=== PATIENT | male | born 1965 | race Two or more races ===

== ENCOUNTER 2020-01-04 15:25 | Inpatient (IN) | payer OTHER ==
[~2020-01-04] VITALS: Ht 175.3 cm; Wt 83.8 kg
[2020-01-04] MEDS ORDERED: SODIUM CHLORIDE 0.9% 1,000 ML IV ONE (15:51)
[2020-01-04] MEDS ORDERED: CLINDAMYCIN 900MG IV 50 ML IV ONE (16:00)
[2020-01-04] MEDS ORDERED: KETOROLAC TROMETH 30 MG/ML 1ML VIAL IV ONE (16:00)
[2020-01-04] MEDS ORDERED: MORPHINE SULF INJ 2 MG/ML SYRINGE 1ML IV PRN (17:00)
[2020-01-04] MEDS ORDERED: NITROGLYCERIN 0.4 MG SL TAB SL PRN (17:00)
[2020-01-04 17:12] LABS: Basophils # (auto) 0.1 10 ^3/uL (0-0.2); Eosinophils # (auto) 0.2 10 ^3/uL (0-0.8); Hematocrit 39.8 % (41.0-53.0); Hemoglobin 13.6 g/dL (13.5-17.5); Lymphocytes # (auto) 1.4 10 ^3/uL (0.4-5.4); Lymphocytes % (auto) 26.2 % (10.0-50.0); Mean Corpuscular Hemoglobin 30.6 pg (28.0-32.0); Mean Corpuscular Hgb Conc. 34.1 g/dL (32.0-36.0); Mean Corpuscular Volume 89.7 fL (80.0-100.0); Monocytes # (auto) 0.5 10 ^3/uL (0-1.3); Neutrophils # (auto) 3.3 10 ^3/uL (1.6-8.6); Neutrophils % (auto) 59.8 % (37.0-80.0); Nucleated Red Blood Cells % 0.1 %; Platelet Count (auto) 216 10^3/uL (140-450); Red Blood Cells 4.44 10^6/uL (4.5-5.90); Red Cell Distribution Width 12.6 % (11.8-14.3); White Blood Cell 5.4 10^3/uL (4.4-10.8)
[2020-01-04 17:18] LABS: INR 1.02 (0.9-1.15); Partial Thromboplastin Time 32.2 sec (23.64-32.05)
[2020-01-04 17:19] LABS: Potassium 4.3 mmol/L (3.5-5.1)
[2020-01-04 17:25] LABS: Albumin 3.5 g/dL (3.4-5.0); BUN/Creatinine Ratio 19.8; Bilirubin, Total 0.3 mg/dL (0.2-1.0); Calcium 8.7 mg/dL (8.5-10.1); Magnesium 2.6 mg/dL (1.6-2.6); Total Protein 7.8 g/dL (6.4-8.2)
[2020-01-04 17:35] LABS: CRP High Sensitivity 4.14 mg/dL (< 0.3)
[2020-01-04] MEDS: ENOXAPARIN SOD 80 MG/0.8ML SYRINGE SC SCH (21:50)
[2020-01-04] MEDS: PIPERACILLIN-TAZOB 3.375GM 100 ML IV SCH (21:50)
--- NOTE | 2020-01-04 21:51 | NUR ---
MS admit from ER KAREN NG admitted to tele/MS. Patient oriented to bethany ATKINS RN, unit, room, bed, and unit policies regarding patient care and visiting hours. Patient weighed by bedscale and encouraged to call if they need something. All questions and concerns addressed, patient verbalized understanding. Note: Patient accompanied by guards. Right knee wound with dressing. Right leg reddened, slightly swollen with wound on right knee. Obtained wound culture and dressing changed to right knee.
[2020-01-04 22:00] VITALS: BP 150/91
[2020-01-04 22:27] VITALS: BP 150/91
[2020-01-05] MEDS ORDERED: ATOR10TA52 PO (00:04)
[2020-01-05] MEDS ORDERED: IBUP600T27 PO (00:04)
[2020-01-05] MEDS ORDERED: AMITRIP PO (00:04)
[2020-01-05] MEDS ORDERED: LISI-646 PO (00:04)
[2020-01-05] MEDS ORDERED: SULF800T7 PO (00:04)
[2020-01-05 05:30] VITALS: BP 141/80
[2020-01-05] MEDS: PIPERACILLIN-TAZOB 3.375GM 100 ML IV SCH ×3 (05:37→22:21)
[2020-01-05 08:00] VITALS: BP 117/77
--- NOTE | 2020-01-05 08:00 | NUR ---
OPENING SHIFT NOTE ASSUMED CARE OF PATIENT AWAKE AND ALERT. NO S/S OF DISTRESS NOTED OR COMPLAINTS OF PAIN. PATIENT UPDATED ON POC FOR THE DAY AND ALL QUESTIONS ANSWERED. BED IS IN LOWEST, LOCKED POSITION WITH SIDE RAILS UP X2 AND CALL LIGHT WITHIN REACH. WILL CONTINUE TO MONITOR Q1H AND PRN.
[2020-01-05] MEDS: ENOXAPARIN SOD 80 MG/0.8ML SYRINGE SC SCH ×2 (09:49→22:21)
[2020-01-05 12:00] VITALS: BP 114/71
[2020-01-05] MEDS ORDERED: VANCOMYCIN PER PHARMACY 0 MG IV SCH (14:00)
[2020-01-05 17:00] VITALS: BP 132/75
[2020-01-05] MEDS ORDERED: VANCOMYCIN 1GM/250ML 250 ML IV SCH ×2 (17:00→23:30)
[2020-01-05 22:00] VITALS: BP 129/78
[2020-01-06 05:00] VITALS: BP 126/88
[2020-01-06] MEDS: PIPERACILLIN-TAZOB 3.375GM 100 ML IV SCH ×3 (06:05→23:04)
--- NOTE | 2020-01-06 07:50 | NUR ---
OPENING SHIFT NOTE: PATIENT AWAKE RESTING IN BED, EATING BREAKFAST. A/OX4 RESPIRATIONS EVEN AND UNLABORED. PATIENT DENIES ANY PAIN AT THIS TIME. UPDATED ON PLAN OF CARE. CALL LIGHT WITHIN REACH, FALL PRECAUTIONS IN PLACE, GUARDS AT BEDSIDE, WILL CONTINUE TO MONITOR.
--- NOTE | 2020-01-06 08:22 | NUR ---
WOUND CARE PHOTOS OBTAINED, DRESSING TO RIGHT KNEE CHANGED, CDI.
[2020-01-06 08:30] VITALS: BP 122/78
--- NOTE | 2020-01-06 09:52 | NUR ---
MARELY TEST WALKED TO LAB.
--- NOTE | 2020-01-06 10:00 | NUR ---
WOUND CARE NOTE: IN TO SEE PATIENT AT THIS TIME PER WOUND CARE CONSULT REQUEST. PATIENT RECENTLY ADMITTED TO [facility] WITH DIAGNOSIS OF RIGHT LEG CELLULITIS. CURRENT EMETERIO SCORE IS 21. PATIENT NOT SURE HOW WOUND WAS ACQUIRED, BUT FEELS THAT IT MAY BE AN INSECT BITE THAT WORSENED OVER THE LAST WEEK. WOUND PHOTO WAS TAKEN UPON ADMIT BY BEDSIDE NURSE, AND AGAIN AT THIS TIME FOR REFERENCE. PRELIMINARY WOUND CULTURE IS POSITIVE FOR STAPH. WOUND MEASURES 4 X 4.5 CM. WOUND BED IS RED, WITH BLACK CRUSTY ESCHAR TO OUTER PERIMETER OF WOUND BED. PERIWOUND IS DARK RED, EDEMA IS SEEN, LIGHT SEROUS DRAINAGE NOTED. APPLIED SILVASORB, OPTIFOAM GENTLE DRESSING. PATIENT WOULD BENEFIT FROM DAILY DRESSING CHANGES WITH SILVASORB AND OPTIFOAM GENTLE DRESSINGS, DIETARY CONSULT, ELEVATION OF RIGHT LEG UP ONTO PILLOWS FOR EDEMA CONTROL, CONTINUED MONITORING BY WOUND CARE TEAM, SKIN/WOUND CARE PLAN. Addendum: 01/06/20 at 1725 by Cee Miller RN Amended: Links added.
[2020-01-06 10:23] LABS: Basophils # (auto) 0.1 10 ^3/uL (0-0.2); Basophils % (auto) 1.2 % (0.0-2.0); Eosinophils # (auto) 0.3 10 ^3/uL (0-0.8); Eosinophils % (auto) 5.8 % (0.0-7.0); Hematocrit 39.4 % (41.0-53.0); Hemoglobin 13.4 g/dL (13.5-17.5); Lymphocytes # (auto) 1.4 10 ^3/uL (0.4-5.4); Lymphocytes % (auto) 29.7 % (10.0-50.0); Mean Corpuscular Hemoglobin 30.9 pg (28.0-32.0); Mean Corpuscular Hgb Conc. 34.2 g/dL (32.0-36.0); Mean Corpuscular Volume 90.3 fL (80.0-100.0); Monocytes # (auto) 0.4 10 ^3/uL (0-1.3); Monocytes % (auto) 8.8 % (0.0-12.0); Neutrophils # (auto) 2.5 10 ^3/uL (1.6-8.6); Neutrophils % (auto) 54.5 % (37.0-80.0); Nucleated Red Blood Cells % 0.1 %; Platelet Count (auto) 201 10^3/uL (140-450); Red Blood Cells 4.36 10^6/uL (4.5-5.90); Red Cell Distribution Width 12.5 % (11.8-14.3); White Blood Cell 4.6 10^3/uL (4.4-10.8)
[2020-01-06] MEDS: ENOXAPARIN SOD 80 MG/0.8ML SYRINGE SC SCH ×2 (10:45→23:04)
[2020-01-06 11:43] VITALS: BP 133/72
[2020-01-06 16:30] VITALS: BP 126/78
--- NOTE | 2020-01-06 19:07 | NUR ---
IV DISCONTINUED IN RIGHT FA. NEW IV PLACED IN RIGHT FOREARM/WRIST AREA, 20G CDI.
--- NOTE | 2020-01-06 19:16 | NUR ---
CARE ENDORSED TO NOC RN.
[2020-01-06 22:00] VITALS: BP 137/93
[2020-01-07 05:00] VITALS: BP 145/76
[2020-01-07] MEDS: VANCOMYCIN 1GM/250ML 250 ML IV SCH ×2 (05:43→17:45)
[2020-01-07] MEDS: PIPERACILLIN-TAZOB 3.375GM 100 ML IV SCH ×3 (06:24→22:51)
[2020-01-07 08:47] VITALS: BP 136/85
--- NOTE | 2020-01-07 09:35 | NUR ---
DRESSING CHANGED TO RIGHT KNEE WOUND ORDERED.
[2020-01-07] MEDS: ENOXAPARIN SOD 80 MG/0.8ML SYRINGE SC SCH ×2 (09:36→22:52)
--- NOTE | 2020-01-07 12:47 | NUR ---
Nutrition Consult/assessment Notes please see attached link for complete assessment Est. Needs BW 88 [id number] kcals (23-25 kcal/kgBW). 88-105g protein (1.0-1.2g/kg BW) . Will continue to monitor pertinent labs and reassess nutrient need prn. Addendum: 01/07/20 at [address] Amended: Links added.
[2020-01-07 12:50] VITALS: BP 134/84
--- NOTE | 2020-01-07 13:30 | NUR ---
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
[2020-01-07 16:21] VITALS: BP 145/89
--- NOTE | 2020-01-07 17:28 | NUR ---
PATIENT SUCCESSFULLY ISOLATED NOW IN ROOM 205.
--- NOTE | 2020-01-07 17:30 | NUR ---
PATIENT UP IN SHOWER.
--- NOTE | 2020-01-07 19:09 | NUR ---
CARE ENDORSED TO NOC RN.
--- NOTE | 2020-01-07 20:25 | NUR ---
PATIENT RESTING ON BED, AWAKE, ALERT AND ORIENTED X 4. DENIES PAIN OR DISCOMFORT AT THIS TIME. PATIENT HAS DRESSING TO RIGHT KNEE, NO DRAINAGE NOTED. PATIENT'S RIGHT LEG IS STILL EDEMATOUS BUT PATIENT REPORTED IT HAD GONE DOWN A LOT. REVIEWED POC. CONTINUE PATIENT CARE.
[2020-01-07 21:52] VITALS: BP 144/91
--- NOTE | 2020-01-08 02:35 | NUR ---
PATIENT RESTING ON BED WITH EYES CLOSED. NO RESPIRATORY DISTRESS NOTED AT THIS TIME. GUARDS AT BEDSIDE. CONTINUE PATIENT CARE.
[2020-01-08] MEDS: HYDROcodone-ACET 10/325MG TAB PO PRN ×2 (04:41→08:48)
[2020-01-08] MEDS: VANCOMYCIN 1GM/250ML 250 ML IV SCH ×2 (05:22→18:17)
[2020-01-08 05:41] VITALS: BP 120/72
[2020-01-08] MEDS: PIPERACILLIN-TAZOB 3.375GM 100 ML IV SCH ×3 (06:40→21:33)
--- NOTE | 2020-01-08 07:30 | NUR ---
Opening Shift Note Assumed care of patient, awake and alert. No S/S of distress/SOB. Pain management options discussed with patient. Instructed on POC and to call for assist PRN, will continue to monitor for changes Q1hr and PRN.
[2020-01-08 08:00] VITALS: BP 137/84
[2020-01-08 09:00] VITALS: BP 137/84
[2020-01-08] MEDS: ENOXAPARIN SOD 80 MG/0.8ML SYRINGE SC SCH ×2 (09:49→21:33)
[2020-01-08 13:00] VITALS: BP 139/81
[2020-01-08 16:49] VITALS: BP 128/74
--- NOTE | 2020-01-08 18:00 | NUR ---
Dressing changed to right knee. cleansed with wound cleanser and then silvasorb applied. optifoam applied and reinforced with netting.
[2020-01-08] MEDS ORDERED: TPN PER PHARMACY IV NR ×10 (20:00)
[2020-01-08 22:00] VITALS: BP 154/85
--- NOTE | 2020-01-09 03:40 | NUR ---
Called Lab to confirm vanco trough lab draw. Lab did confirm lab draw and blood bank laboratory technologist will be at unit shortly-and was advised to ask blood bank laboratory technologist when she gets here to draw vanco trough. Addendum: 01/09/20 at 0505 by Reagan Jiménez RN wrong patient
--- NOTE | 2020-01-09 04:15 | NUR ---
Spoke to Zhui Xin and notified of [facility] lab draw due at 0430. [employer] confirmed and will do it shortly. Addendum: 01/09/20 at 0505 by Reagan Jiménez RN wrong patient
[2020-01-09 05:00] VITALS: BP 154/75
--- NOTE | 2020-01-09 05:02 | NUR ---
Spoke to [employer] and she advised that she is doing lab draw now. Addendum: 01/09/20 at 0505 by Reagan Jiménez RN wrong patient
--- NOTE | 2020-01-09 05:06 | NUR ---
patient is resting in bed with no sign of distress or sob.
[2020-01-09] MEDS: VANCOMYCIN 1GM/250ML 250 ML IV SCH ×2 (05:16→18:10)
[2020-01-09] MEDS: PIPERACILLIN-TAZOB 3.375GM 100 ML IV SCH ×3 (06:25→21:04)
--- NOTE | 2020-01-09 07:30 | NUR ---
Opening Shift Note Assumed care of patient, awake and alert. No S/S of distress/SOB or pain. Instructed on POC and to call for assist PRN, will continue to monitor for changes Q1hr and PRN.
[2020-01-09 08:00] VITALS: BP 141/78
[2020-01-09] MEDS: ENOXAPARIN SOD 80 MG/0.8ML SYRINGE SC SCH ×2 (09:53→21:04)
[2020-01-09 12:00] VITALS: BP 149/82
[2020-01-09] MEDS: HYDROcodone-ACET 10/325MG TAB PO PRN (13:16)
[2020-01-09 17:00] VITALS: BP 131/88
--- NOTE | 2020-01-09 19:15 | NUR ---
Opening Shift Note Assumed care of patient, awake and alert. No S/S of distress/SOB or pain. Bed in lowest locked position, side rails up x2, call light within reach, guards at bedside. Optifoam dressing noted to be clean, dry, and intact with no redness or edema noted. Patient stated he changed the dressing after showering earlier in the day. Instructed on POC and to call for assist PRN, will continue to monitor for changes Q1hr and PRN.
[2020-01-09] MEDS: OXYCODONE W/ ACETAMINOPHEN 5/325MG TABLET PO PRN (21:05)
[2020-01-09 22:00] VITALS: BP 145/84
--- NOTE | 2020-01-10 00:33 | NUR ---
IV removal and insertion 20 gauge IV to right wrist noted to be leaking. IV DC'd with clean sterile technique, catheter fully intact. Pressure dressing applied to site. Patient tolerated well. IV access obtained, via clean sterile technique by inserting a 22 gauge catheter to patient's right hand after one attempt. IV secured properly. No trauma to site. Patient tolerated well. Zosyn continues infusing as ordered. Will continue to monitor.
[2020-01-10] MEDS: OXYCODONE W/ ACETAMINOPHEN 5/325MG TABLET PO PRN ×4 (00:54→21:54)
[2020-01-10 05:00] VITALS: BP 156/85
[2020-01-10] MEDS: VANCOMYCIN 1GM/250ML 250 ML IV SCH ×2 (05:45→17:16)
[2020-01-10] MEDS: PIPERACILLIN-TAZOB 3.375GM 100 ML IV SCH ×3 (06:53→21:52)
--- NOTE | 2020-01-10 06:56 | NUR ---
Closing Note Patient lying in bed, awake and alert. No S/S of distress/SOB or pain. Bed in lowest locked position, side rails up x2, call light within reach, guards at bedside. Will endorse care to dayshift RN.
--- NOTE | 2020-01-10 07:30 | NUR ---
Opening shift note assumed care of patient from NOC RUSSELL Marroquin. Patient is aox4, no s/s of distress noted. Bed is in lowest locked position, call light is within reach, and side rails are up x2. Updated patient on plan of care and patient verbalized understanding. Will continue to monitor q1hr and PRN.
[2020-01-10 08:00] VITALS: BP 132/75
--- NOTE | 2020-01-10 09:28 | NUR ---
Physician rounding Dr. Encarnacion at bedside. Updated him on patient status, no new orders received. Will continue care.
[2020-01-10] MEDS: ENOXAPARIN SOD 80 MG/0.8ML SYRINGE SC SCH ×2 (09:29→21:52)
[2020-01-10] MEDS: ONDANSETRON HCL 4 MG/2 ML VIAL IV PRN ×2 (09:29→17:31)
--- NOTE | 2020-01-10 11:02 | NUR ---
Nutrition Followup Note Wt 87.7kg Pt was in isolation. Pt appetite is good aeb pt with 96% po intake avg x 2 days per RN note. Will continue to monitor po intake, labs, skin Est. Needs BW 88 [id number] kcals (23-25 kcal/kgBW). 88-105g protein (1.0-1.2g/kg BW) . Will continue to monitor pertinent labs and reassess nutrient need prn. Labs: BUN 22H, GLUC 112H, Alb 3.5WNL BM: 1 BM 01/09 per RN note Skin: BS 21 low risk, abrasion on right knee, full details in hearing care professional note PES: Altered nutrition related lab values r.t current chronic medical condition aeb elev BUN hyperglcyemia Comments 1)consider MVI/C bid 2) continue current peraza of care Expected Outcomes/Goals: pt will have better healing wounds pt will have improved labs
[2020-01-10 12:00] VITALS: BP 128/69
[2020-01-10 17:00] VITALS: BP 162/98
--- NOTE | 2020-01-10 19:25 | NUR ---
End of shift note Endorsed care of patient to NOC RN Erika. No s/s of distress noted.
--- NOTE | 2020-01-10 19:25 | NUR ---
Opening Shift Note Assumed care of patient, awake and alert. No S/S of distress/SOB or pain. Bed in lowest locked position, side rails up x2, call light within reach, guards at bedside. Optifoam dressing again noted to be clean, dry, and intact with no redness or edema noted. Dressing changed earlier in the day, per report from dayshift RN. Instructed on POC and to call for assist PRN, will continue to monitor for changes Q1hr and PRN.
[2020-01-10 22:00] VITALS: BP 149/96
[2020-01-11 05:00] VITALS: BP 140/86
[2020-01-11] MEDS: VANCOMYCIN 1GM/250ML 250 ML IV SCH ×2 (05:30→17:23)
[2020-01-11] MEDS: ONDANSETRON HCL 4 MG/2 ML VIAL IV PRN ×2 (05:46→16:23)
[2020-01-11] MEDS: PIPERACILLIN-TAZOB 3.375GM 100 ML IV SCH ×3 (06:52→21:42)
--- NOTE | 2020-01-11 07:15 | NUR ---
Opening shift note assumed care of patient from NOC RUSSELL James. Patient is AOx4, no s/s of distress noted. Bed is in lowest locked position, call light is within reach, guards at bedside and side rails are up x2. Updated patient on plan of care and patient verbalized understanding. Will continue to monitor q1hr and PRN.
[2020-01-11] MEDS: ENOXAPARIN SOD 80 MG/0.8ML SYRINGE SC SCH ×2 (08:34→21:42)
[2020-01-11 09:00] VITALS: BP 118/73
[2020-01-11 12:54] VITALS: BP 158/87
[2020-01-11] MEDS: OXYCODONE W/ ACETAMINOPHEN 5/325MG TABLET PO PRN ×2 (14:41→21:11)
[2020-01-11] MEDS ORDERED: cloNIDine HCL 0.1 MG TAB PO PRN (16:30)
[2020-01-11 16:57] VITALS: BP 131/82
--- NOTE | 2020-01-11 19:00 | NUR ---
End of shift note Endorsed care to NOC RUSSELL Lord, no s/s of distress noted.
[2020-01-11 22:00] VITALS: BP 144/77
[2020-01-12 05:00] VITALS: BP 148/85
[2020-01-12] MEDS: VANCOMYCIN 1GM/250ML 250 ML IV SCH ×2 (05:19→17:48)
[2020-01-12] MEDS: PIPERACILLIN-TAZOB 3.375GM 100 ML IV SCH ×3 (06:24→22:16)
--- NOTE | 2020-01-12 07:30 | NUR ---
Opening Shift Note Assumed care of patient, awake, alert, and oriented. No S/S of distress/SOB or pain. Bed in lowest/locked position, bed rails up x2, call light within reach. Guards at bedside. Instructed on POC and to call for assist PRN. Will continue to monitor for changes Q1hr and PRN.
[2020-01-12] MEDS: ENOXAPARIN SOD 80 MG/0.8ML SYRINGE SC SCH ×2 (08:48→22:16)
[2020-01-12 09:00] VITALS: BP 133/80
--- NOTE | 2020-01-12 12:18 | NUR ---
WOUND CARE PATIENT PERFORMED WOUND CARE PER MD ORDERS. PATIENT TOLERATED WELL. WILL CONTINUE TO MONITOR
[2020-01-12 13:00] VITALS: BP 136/96
[2020-01-12] MEDS: OXYCODONE W/ ACETAMINOPHEN 5/325MG TABLET PO PRN (14:04)
[2020-01-12] MEDS: ONDANSETRON HCL 4 MG/2 ML VIAL IV PRN (14:06)
[2020-01-12 17:00] VITALS: BP 120/85
[2020-01-12 22:31] VITALS: BP 135/86
[2020-01-13] MEDS: VANCOMYCIN 1GM/250ML 250 ML IV SCH ×2 (04:49→17:30)
[2020-01-13] MEDS: OXYCODONE W/ ACETAMINOPHEN 5/325MG TABLET PO PRN ×2 (05:36→18:39)
[2020-01-13] MEDS: PIPERACILLIN-TAZOB 3.375GM 100 ML IV SCH ×3 (06:31→22:52)
[2020-01-13 09:00] VITALS: BP 123/73
[2020-01-13] MEDS: ENOXAPARIN SOD 80 MG/0.8ML SYRINGE SC SCH ×2 (10:00→22:52)
--- NOTE | 2020-01-13 11:12 | NUR ---
WOUND CARE NOTE: Wound care in to see patient for reevaluation of Rt knee wound. Patient is resting in bed in Rm. 205. Patient is awake, alert and oriented. Patient is ambulatory and self turning and repositioning. His Matthew score is 21. He denies any pain at this time. Patient's Rt knee continue to display 4x5cm dark red area from insect bite/abscess/cellulitis. 0.8x0.8cm open area at center, minimal serous drainage noted, no odor noted. Erythema and edema is much improved. Cleansed R knee wound, photograph taken for reference and changed the dressing per MD order. Patient tolerated well, guards at bedside. RECOMMENDATION: Continuation of all wound care orders prescribed by MD, continue with skin/wound plan of care, continue monitoring by wound care while patient is hospitalized. Addendum: 01/13/20 at 1624 by Anabel Salinas RN Amended: Links added.
[2020-01-13 13:00] VITALS: BP 136/80
--- NOTE | 2020-01-13 16:11 | NUR ---
Nutrition Followup Notes Wt 87.0 kg Pt is with a Regular diet, appetite is good aeb 100% PO intake over 6 meals per RN note. Will continue to monitor PO status, skin status, pertinent labs and weight trends. Will f/u in 3-5 days. Est. Needs BW 88 [id number] kcals (23-25 kcal/kgBW). Est protein 88-105g (1.0-1.2g/kg BW) . Will continue to monitor pertinent labs and reassess nutrient need prn. Labs: BUN 22H, GLUC 112H, Alb 3.5WNL BM: 1 BM 01/10 per RN note Skin: BS 19 low risk, abrasion on right knee, full details in dialysis patient care technician note PES: Altered nutrition related lab values r.t current chronic medical condition aeb elev BUN hyperglycemia Comments 1)consider MVI/C bid 2) continue current peraza of care
[2020-01-13 17:00] VITALS: BP 119/67
--- NOTE | 2020-01-13 19:00 | NUR ---
Opening Note Assumed care of patient, awake and alert. No S/S of distress/SOB, patient do complained of headache, he already took medication for it. Patient requested to take a shower, the guard is waiting for a back up, provided patient with clean clothes etc to shower. New dressing will be applied once patient is finished. Instructed on POC and to call for assist PRN, will continue to monitor.
[2020-01-13 21:33] VITALS: BP 140/78
[2020-01-14 05:01] VITALS: BP 155/77
[2020-01-14] MEDS: PIPERACILLIN-TAZOB 3.375GM 100 ML IV SCH ×3 (05:31→23:26)
--- NOTE | 2020-01-14 05:31 | NUR ---
Vancomycin delayed, awaiting result from Saray david to proceed accordingly.
--- NOTE | 2020-01-14 06:37 | NUR ---
Vanco trough 12, if less than 20, per pharmacy Dose of Vancomycin will be given
--- NOTE | 2020-01-14 07:30 | NUR ---
RECEIVED REPORT FROM NIGHT NURSE. PATIENT RESTING IN BED, NO DISTRESS NOTED. GUARDS X2 AT BEDSIDE. SHACKLES TO BILATERAL ANKLES. HANDCUFF TO LEFT WRIST. WILL CONTINUE TO MONITOR.
[2020-01-14 09:00] VITALS: BP 103/58
--- NOTE | 2020-01-14 09:00 | NUR ---
PATIENT IN SHOWER, 2 GUARDS ON WATCH.
[2020-01-14] MEDS: ENOXAPARIN SOD 80 MG/0.8ML SYRINGE SC SCH ×2 (10:03→23:26)
[2020-01-14] MEDS: VANCOMYCIN 1GM/250ML 250 ML IV SCH ×2 (10:03→23:26)
[2020-01-14 12:46] VITALS: BP 122/68
--- NOTE | 2020-01-14 16:34 | NUR ---
TEMPERATURE 102.3, COOLING MEASURES INITIATED. PLACED PAGE TO DR. PINA FOR MEDICATION. WILL WAIT FOR CALL BACK.
[2020-01-14 17:00] VITALS: BP 128/73
--- NOTE | 2020-01-14 17:19 | NUR ---
SPOKE WITH DOCTOR PINA, ORDERS RECEIVED, WILL PLACE AND CARRY OUT.
--- NOTE | 2020-01-14 17:45 | NUR ---
TEMPERATURE RECHECK 100.3, WILL CONTINUE COOLING MEASURES.
--- NOTE | 2020-01-14 19:00 | NUR ---
Opening Shift Note Assumed care of patient, awake and alert. No S/S of distress/SOB or pain. Instructed on POC and to call for assist PRN, will continue to monitor .
[2020-01-15 05:00] VITALS: BP 131/78
[2020-01-15] MEDS: PIPERACILLIN-TAZOB 3.375GM 100 ML IV SCH ×3 (06:08→23:27)
[2020-01-15 08:54] VITALS: BP 120/78
[2020-01-15] MEDS: ENOXAPARIN SOD 80 MG/0.8ML SYRINGE SC SCH ×3 (09:57→21:30)
[2020-01-15] MEDS: VANCOMYCIN 1GM/250ML 250 ML IV SCH ×2 (09:57→21:30)
[2020-01-15 12:33] VITALS: BP 119/77
[2020-01-15] MEDS: ACETAMINOPHEN 325 MG TAB PO PRN (12:42)
[2020-01-15 16:27] VITALS: BP 120/73
--- NOTE | 2020-01-15 18:16 | NUR ---
Rounding Patient eating dinner at this time on bed with 2 mcc guards at bedside, no complaints of pain. Will continue to monitor.
[2020-01-15 22:00] VITALS: BP 130/71
--- NOTE | 2020-01-15 23:30 | NUR ---
LATE MEDICATION ADMINISTRATION 2199 MEDICATIONS: VANCO STARTED AT 0 TO BE FINISHED INFUSING BY 2229. PATIENT HAD ONE IV ACCESS AT THIS TIME. UPON ENTERING ROOM AT 0, IV PUMP IS NOTICED TO BE ON STANDBY. PATIENT HAD BEEN INSTRUCTED TO CALL IF PUMP ALARMS. PATIENT ASKED IF HE OR GUARDS AT BEDSIDE TURNED IV PUMP OFF. GUARDS STATED, "NO, SAM CAME IN TO TURN IT OFF." LEARNING AND DEVELOPMENT ASSOCIATE INSTRUCTED NOT TO ADJUST PUMP AND TO NOTIFY RN IMMEDIATELY IF PUMP IS ALARMING, US VERBALIZED UNDERSTANDING. FOR THIS REASON, ZOSYN WHICH WOULD HAVE BEEN ADMINISTERED AT 0 IS ADMINISTERED PAST SCHEDULED TIME (SEE EMAR FOR ADMINISTRATION). WILL CONTINUE TO MONITOR.
--- NOTE | 2020-01-16 | NUR ---
C/O RASH PATIENT COMPLAINING OF NOT FEELING WELL. PATIENT ASSESSED AND SHOWS GENERALIZED RASH. PATIENT DENIES ITCHING, SOB, DIFFICULT BREATHING, NAUSEA/VOMITING, PAIN, AND ADDITIONAL SYMPTOMS. PATIENT MERELY STATES, "HE DOES NOT FEEL AFTER" AFTER ADMINISTRATION ON LAST ANTIBIOTIC (SEE EMAR). CALLED MD LOPEZ AND LEFT MESSAGE REGARDING INDICATION. AWAITING CALL BACK. WILL CONTINUE TO MONITOR PATIENT.
[2020-01-16] MEDS: ACETAMINOPHEN 325 MG TAB PO PRN (04:10)
[2020-01-16 05:00] VITALS: BP 131/82
[2020-01-16] MEDS: PIPERACILLIN-TAZOB 3.375GM 100 ML IV SCH ×3 (05:09→22:13)
--- NOTE | 2020-01-16 07:46 | NUR ---
OPENING SHIFT NOTE Assumed care of patient. PT is awake and alert. No S/S of distress/SOB. Guard at bedside. Instructed on POC and to call for assist PRN, will continue to monitor for changes Q1hr and PRN.
[2020-01-16 08:16] VITALS: BP 118/75
[2020-01-16] MEDS: VANCOMYCIN 1GM/250ML 250 ML IV SCH ×2 (10:00→21:22)
[2020-01-16 13:00] VITALS: BP 124/71
[2020-01-16 16:53] VITALS: BP 141/82
--- NOTE | 2020-01-16 19:40 | NUR ---
Opening Shift Note Assumed care of patient, awake and alert. Fall and safety precautions in place. Call light within reach and able to use. No S/S of distress/SOB or pain. Guards at bedside. Instructed on POC and to call for assist PRN, patient verbalized understanding and in agreement. Will continue to monitor for changes Q1hr and PRN.
--- NOTE | 2020-01-16 21:00 | NUR ---
DRESSING CHANGE EXPLAINED TO PATIENT INDICATION OF PROCEDURE, PATIENT VERBALIZED UNDERSTANDING ND IN AGREEMENT. PER MD ORDER AND WOUND CARE REC, WOUND CARE PERFORMED AT THIS TIME. PATIENT TOLERATED WELL. WILL CONTINUE TO MONITOR.
[2020-01-16 22:00] VITALS: BP 125/70
--- NOTE | 2020-01-16 22:00 | NUR ---
IV removal IV DC'd to right hand with clean sterile technique, catheter fully intact. Pressure dressing applied to site. Patient tolerated well.
--- NOTE | 2020-01-16 22:13 | NUR ---
IV insertion IV access obtained, via clean sterile technique by inserting 22 gauge catheter at left hand at one attempt. IV secured properly. No trauma to site. Patient tolerated well.
[2020-01-17 05:00] VITALS: BP 130/73
[2020-01-17] MEDS: PIPERACILLIN-TAZOB 3.375GM 100 ML IV SCH ×3 (05:36→21:12)
--- NOTE | 2020-01-17 07:45 | NUR ---
Opening Note Received report from material handler 2nd shift RN. Patient is awake, alert and oriented x4. No signs or symptoms of distress noted at this time. Patient is on room air, respirations even and unlabored. Patient denies pain at this time. Reviewed plan of care with patient, patient verbalized understanding. Bed in low and locked position, call light within reach. Will continue to monitor Q1 hour and PRN. Two guards at bedside.
[2020-01-17] MEDS: ENOXAPARIN SOD 40 MG/0.4 ML SYRINGE SC SCH (08:54)
[2020-01-17] MEDS: VANCOMYCIN 1GM/250ML 250 ML IV SCH (08:54)
[2020-01-17 09:00] VITALS: BP 124/74
--- NOTE | 2020-01-17 11:06 | NUR ---
Nutrition Followup Notes Wt 85.0 kg Pt is with a Regular diet, aeb 100% PO intake over 6 meals per RN note. Will continue to monitor PO status, skin status, pertinent labs and weight trends. Will f/u in 3-5 days. Est. Needs BW 88 [id number] kcals (23-25 kcal/kgBW). Est protein 88-105g (1.0-1.2g/kg BW). Will continue to monitor pertinent labs and reassess nutrient need prn. Labs: No new labs today 01/03: BUN 22H, GLUC 112H, Alb 3.5WNL BM: 1 BM 01/15 per RN note Skin: BS 20 low risk, abrasion on right knee, full details in healthcare sales representative note PES: Altered nutrition related lab values r.t current chronic medical condition aeb elev BUN hyperglycemia Comments 1)consider MVI/C bid. 2) continue current peraza of care
[2020-01-17] MEDS: ACETAMINOPHEN 325 MG TAB PO PRN ×2 (12:39→22:56)
--- NOTE | 2020-01-17 12:39 | NUR ---
Elevated temperature Patients temperature is 101.9. Will medicate per orders, cooling measures in place. Will continue to monitor Q1 hour and PRN.
[2020-01-17 13:00] VITALS: BP 151/95
--- NOTE | 2020-01-17 14:20 | NUR ---
Wound care Wound care performed to patients right knee per orders. Patient tolerated well. Will continue to monitor Q1 hour and PRN.
[2020-01-17 17:00] VITALS: BP 116/67
--- NOTE | 2020-01-17 19:16 | NUR ---
Closing Note Report given to plant operator/shift supervisor RN. No signs or symptoms noted at this time. Guards at bedside.
[2020-01-17 22:00] VITALS: BP 124/72
--- NOTE | 2020-01-17 22:30 | NUR ---
MD COMMUNICATION PATIENT C/O GENERALIZED RASH AND FEELING ILL. MD NOTIFIED OF PATIENT'S SYMPTOMS. MD AT BEDSIDE.
[2020-01-17] MEDS: LINEZOLID 600MG/300ML 300 ML IV SCH (22:56)
[2020-01-18 05:00] VITALS: BP 106/68
--- NOTE | 2020-01-18 07:25 | NUR ---
Opening Note Received report from maintenance technician 2nd shift RN. Patient is awake, alert and oriented x4. No signs or symptoms of distress noted at this time. Patient is on room air, respirations even and unlabored. Reviewed plan of care with patient, patient verbalized understanding. Bed in low and locked position, call light within reach. Will continue to monitor Q1 hour and PRN. Two guards at bedside.
[2020-01-18] MEDS: LINEZOLID 600MG/300ML 300 ML IV SCH ×2 (08:45→22:32)
[2020-01-18] MEDS: ENOXAPARIN SOD 40 MG/0.4 ML SYRINGE SC SCH (08:45)
[2020-01-18 09:00] VITALS: BP 127/78
--- NOTE | 2020-01-18 09:20 | NUR ---
Patient showering Guards in room. Will continue to monitor Q1 hour and PRN.
--- NOTE | 2020-01-18 09:35 | NUR ---
Wound care Wound care performed to patients right knee per orders. Patient tolerated well. Will continue to monitor Q1 hour and PRN.
[2020-01-18 13:09] VITALS: BP 122/76
--- NOTE | 2020-01-18 13:45 | NUR ---
IV Removed IV removed with clean sterile technique, catheter fully intact. Pressure dressing applied to site. Patient tolerated well. Will continue to monitor Q1 hour and PRN.
--- NOTE | 2020-01-18 13:50 | NUR ---
IV Insertion IV access obtained, via clean sterile technique by inserting 22 gauge catheter to right hand after one attempt. IV secured properly. No trauma to site. Patient tolerated well. Will continue to monitor Q1 hour and PRN.
[2020-01-18 17:29] VITALS: BP 114/62
[2020-01-18] MEDS: ACETAMINOPHEN 325 MG TAB PO PRN (17:34)
--- NOTE | 2020-01-18 19:00 | NUR ---
Opening Shift Note Assumed care of patient, awake and alert. No S/S of distress/SOB or pain. Instructed on POC and to call for assist PRN, will continue to monitor for changes Q1hr and PRN. bed in lowest and locked position with rails up x3. pt oriented to use of call light for assistance.
--- NOTE | 2020-01-18 19:05 | NUR ---
Closing Note Report given to material handler 1st shift RN. No signs or symptoms noted at this time. Guards at bedside.
[2020-01-18 22:00] VITALS: BP 100/57
[2020-01-19 05:00] VITALS: BP 121/71
--- NOTE | 2020-01-19 08:00 | NUR ---
Received pt resting in bed, call light within reach, guards at bed side, no pain noted or reported, rt knee dressing clean and dry.
[2020-01-19 08:37] VITALS: BP 124/64
--- NOTE | 2020-01-19 10:00 | NUR ---
Dressing change Removed old dressing, clean with wound cleanser, applied with silvasorb, covered with optifoam, and secured with kerlix.
[2020-01-19] MEDS: LINEZOLID 600MG/300ML 300 ML IV SCH ×2 (10:27→22:31)
[2020-01-19] MEDS: ENOXAPARIN SOD 40 MG/0.4 ML SYRINGE SC SCH (10:27)
[2020-01-19 12:43] VITALS: BP 132/62
[2020-01-19 16:59] VITALS: BP 134/67
[2020-01-19 21:59] VITALS: BP 130/55
[2020-01-19] MEDS: ACETAMINOPHEN 325 MG TAB PO PRN (23:53)
[2020-01-20 04:48] VITALS: BP 135/65
[2020-01-20 09:00] VITALS: BP 116/66
[2020-01-20] MEDS: ENOXAPARIN SOD 40 MG/0.4 ML SYRINGE SC SCH (09:48)
[2020-01-20] MEDS: LINEZOLID 600MG/300ML 300 ML IV SCH ×2 (09:48→22:24)
--- NOTE | 2020-01-20 11:30 | NUR ---
WOUND CARE NOTE: IN TO SEE PATIENT AT THIS TIME PER WOUND CARE REEVALUATION. PATIENT'S RIGHT KNEE ABSCESS IS RESOLVING WELL, WITH NO OPEN OR DRAINING AREAS NOTED. WOUND HAS SMALL DARK BROWN SCAB, MEASURING 0.5 X 0.5 CM. PERIWOUND IS BRIGHT RED, PINK. NO INDURATION NOTED. APPLIED SILVASORB AND OPTIFOAM GENTLE DRESSING. PATIENT STATES THAT HE NO LONGER HAS ANY PAIN TO THIS LEG/WOUND SITE. PATIENT WOULD BENEFIT FROM Q 3 DAY/PRN DRESSING CHANGES WHILE PATIENT REMAINS IN HOSPITAL, THEN OPEN TO AIR UPON DISCHARGE. WOUND CARE TEAM WILL CONTINUE TO MONITOR.
[2020-01-20 13:00] VITALS: BP 124/62
[2020-01-20] MEDS: ACETAMINOPHEN 325 MG TAB PO PRN ×2 (16:43→22:24)
[2020-01-20 16:54] VITALS: BP 129/75
--- NOTE | 2020-01-20 19:00 | NUR ---
Received report from RUSSELL Pimentel. pt AAOx4, relaxed with no s/s of distress at this time. Bed in lowest and locked position with rails up x2. pt has senior living guards at bedside t/o shift. Pt oriented to use of call light for assistance. Will continue to monitor Q1H and PRN t/o shift.
[2020-01-20 22:00] VITALS: BP 137/79
[2020-01-21] MEDS: ACETAMINOPHEN 325 MG TAB PO PRN ×3 (04:39→17:22)
[2020-01-21 04:48] VITALS: BP 123/82
--- NOTE | 2020-01-21 08:00 | NUR ---
Opening Shift Note Assumed care of patient, awake and alert. No S/S of distress/SOB or pain. With wound on the right knee covered with optifoam and change very 3days/prn as per food products sales representative notes. Instructed on POC and to call for assist PRN, will continue to monitor for changes Q1hr and PRN. Addendum: 01/21/20 at 1628 by Charly Mills RN correction: change dressing every 3 days/prn.
[2020-01-21 09:00] VITALS: BP 109/58
[2020-01-21] MEDS: LINEZOLID 600MG/300ML 300 ML IV SCH ×2 (09:30→22:49)
[2020-01-21] MEDS: ENOXAPARIN SOD 40 MG/0.4 ML SYRINGE SC SCH (09:31)
[2020-01-21 13:00] VITALS: BP 137/70
[2020-01-21 17:00] VITALS: BP 130/75
[2020-01-21 22:00] VITALS: BP 108/58
[2020-01-22 05:00] VITALS: BP 127/58
--- NOTE | 2020-01-22 07:30 | NUR ---
Opening Shift Note Assumed care of patient, who is alert and oriented x4. No S/S of distress/SOB or pain. Bed is low, locked with 2x side rails up. Call light is within reach. Instructed on POC and to call for assist PRN, will continue to monitor for changes Q1hr and PRN.
[2020-01-22 09:00] VITALS: BP 126/71
[2020-01-22] MEDS: ENOXAPARIN SOD 40 MG/0.4 ML SYRINGE SC SCH (09:31)
[2020-01-22] MEDS: LINEZOLID 600MG/300ML 300 ML IV SCH ×2 (09:31→21:53)
--- NOTE | 2020-01-22 11:02 | NUR ---
Nutrition Followup Notes Wt 85.8 kg Pt is with a Regular diet, appetite is good aeb 100% PO intake over 4 meals per RN note. Pt with no distress. Will continue to monitor PO status, skin status, pertinent labs and weight trends. Will f/u in 3-5 days. Est. Needs BW 88 [id number] kcals (23-25 kcal/kgBW). Est protein 88-105g (1.0-1.2g/kg BW). Will continue to monitor pertinent labs and reassess nutrient need prn. Labs: All labs WNL BM: 1 BM 01/21 per RN note Skin: BS 21 low risk, abrasion on right knee, full details in care clinician note PES: Altered nutrition related lab values r.t current chronic medical condition aeb elev BUN hyperglycemia Comments 1)consider MVI/C bid. 2) continue current peraza of care
[2020-01-22 13:00] VITALS: BP 140/74
[2020-01-22 17:00] VITALS: BP 142/67
[2020-01-22] MEDS: ACETAMINOPHEN 325 MG TAB PO PRN (17:08)
--- NOTE | 2020-01-22 17:11 | NUR ---
Elevated Temperature Patients temperature is 101.6 Medicated with Tylenol PRN (see EMAR). Cooling measures initiated at this time. Will reassess.
--- NOTE | 2020-01-22 18:12 | NUR ---
Temperature reassessment: T: 99.7 Patient resting comfortably at this time. Will continue to monitor.
[2020-01-22 21:47] VITALS: BP 133/75
[2020-01-23 08:56] VITALS: BP 145/82
[2020-01-23] MEDS: LINEZOLID 600MG/300ML 300 ML IV SCH ×2 (10:00→20:54)
[2020-01-23] MEDS: ENOXAPARIN SOD 40 MG/0.4 ML SYRINGE SC SCH (10:00)
[2020-01-23] MEDS: HYDROcodone-ACET 10/325MG TAB PO PRN (10:35)
[2020-01-23] MEDS: ACETAMINOPHEN 325 MG TAB PO PRN ×2 (12:16→20:55)
[2020-01-23 13:00] VITALS: BP 142/83
--- NOTE | 2020-01-23 16:00 | NUR ---
Right knee cellulitis site clean and dry. No drainage. Area swap for wound culture, per physician's order. Physician is aware that there is no drainage noted.
[2020-01-23 16:53] VITALS: BP 123/67
[2020-01-23 21:51] VITALS: BP 108/72
[2020-01-24 05:00] VITALS: BP 147/76
[2020-01-24 09:00] VITALS: BP 137/74
[2020-01-24] MEDS: LINEZOLID 600MG/300ML 300 ML IV SCH ×2 (09:20→21:10)
[2020-01-24] MEDS: ENOXAPARIN SOD 40 MG/0.4 ML SYRINGE SC SCH (09:21)
[2020-01-24] MEDS: HYDROcodone-ACET 10/325MG TAB PO PRN (11:20)
[2020-01-24 13:00] VITALS: BP 118/69
[2020-01-24 17:00] VITALS: BP 141/75
--- NOTE | 2020-01-24 19:05 | NUR ---
OPENING NOTE- NOC SHIFT PATIENT IS ALERT AND ORIENTED X4, ANSWERS IN COMPLETE SENTENCES AND MAKES APPROPRIATE EYE CONTACT. PATIENT IS IN BED, BED IS LOCKED AT LOWEST POSITION, BED RAILS UP X2 AND HEAD OF BED IS UP >30 DEGREES. PATIENT IS AN INMATE, TWO GUARDS AT BEDSIDE. PATIENT IS RESTRAINED BILATERAL ANKLES AND LEFT WRIST; NO REDNESS NOTED. WILL CONTINUE TO MONITOR Q1H AND PRN.
[2020-01-24 22:00] VITALS: BP 125/71
--- NOTE | 2020-01-25 03:00 | NUR ---
PATIENT PLACED ON NC 2L AFTER REPORTING SOB AND SAT O2 READING AT 84%. PATIENT RE ASSESSED SAT O2 AT 92%. VITAL SIGNS AT THIS TIME BP135/84, HR 90, RR 20, TEMP 98.0 PATIENT REPORTED REDNESS TO LEFT UPPER THIGH WILL ENDORSE FOLLOW UP TO DAY SHIFT NURSE.
[2020-01-25 05:00] VITALS: BP 114/68
--- NOTE | 2020-01-25 06:26 | NUR ---
CALL FROM SHELTER SUPERVISOR DRYING AND SOFTENING after verification of password MS. REGALADO was updated on the patient status and the plan of care and verbalized understanding. All questions answered.
--- NOTE | 2020-01-25 07:01 | NUR ---
CLOSING NOTE- NOC SHIFT PATIENT IS RESTING IN BED. NO S/SX OF DISTRESS OR SOB. WILL ENDORSE PATIENT CARE TO DAY SHIFT NURSE.
[2020-01-25 08:00] VITALS: BP 115/69
[2020-01-25 08:44] VITALS: BP 115/69
[2020-01-25] MEDS: LINEZOLID 600MG/300ML 300 ML IV SCH (10:31)
[2020-01-25] MEDS: ENOXAPARIN SOD 40 MG/0.4 ML SYRINGE SC SCH (10:32)
[2020-01-25 12:09] VITALS: BP_SYST 76
[2020-01-25] MEDS: HYDROcodone-ACET 10/325MG TAB PO PRN (14:02)
[2020-01-25 17:00] VITALS: BP 126/77
[2020-01-25] MEDS ORDERED: SULF800T7 PO (19:42)
[2020-01-25 20:52] VITALS: BP 140/79
--- NOTE | 2020-01-25 21:05 | NUR ---
DISCHARGE PHOTOS DC PHOTOS TO RIGHT KNEE TAKEN. WOUND PHOTO FORM FILLED AND FILED.
--- NOTE | 2020-01-25 21:37 | NUR ---
PATIENT DISCHARGED NO S/SX OF DISTRESS, SOB OR PAIN. PATIENT WAITING IN ROOM FOR TRANSPORT WITH TWO CARE HOME GUARDS. ALL DC PAPER WORK SIGNED AND GIVEN TO CARE HOME GUARDS. IV removal IV DC'd with clean sterile technique, catheter fully intact. Pressure dressing applied to site. Patient tolerated well.
== END 2020-01-25 22:09 | DRG 603 ==
LOC: ER 15:25 → EEVIPCON 15:25 → OVERFLOW 15:26 → CENTRAL 20:40
PROVIDERS: ADMIT Internal Medicine; ATTEND Internal Medicine
DX: L03.115 Cellulitis of right lower limb (principal); L02.415 Cutaneous abscess of right lower limb; S80.211A Abrasion, right knee, initial encounter; A49.02 Methicillin resistant Staphylococcus aureus infection, unspecified site; I10 Essential (primary) hypertension; F12.90 Cannabis use, unspecified, uncomplicated; F17.200 Nicotine dependence, unspecified, uncomplicated; S02.2XXA Fracture of nasal bones, initial encounter for closed fracture; W19.XXXA Unspecified fall, initial encounter; Y93.89 Activity, other specified; Z82.49 Family history of ischemic heart disease and other diseases of the circulatory system; Y92.89 Other specified places as the place of occurrence of the external cause; Y99.8 Other external cause status; Z03.818 Encounter for observation for suspected exposure to other biological agents ruled out
CPT/HCPCS: 36415; 70486; 71045; 73721; 80053; 80202; 82565; 83735; 85025; 85610; 85730; 86141; 87040; 87077; 87086; 87186; 87205; 93971; G0378; J1885; J2405; J2543; J3490